=== PATIENT | female | born 1970 | race Caucasian/White ===

== ENCOUNTER 2016-03-29 13:44 | Emergency (ER) | payer OTHER ==
[2016-03-29] MEDS ORDERED: Morphine INJ* 2 MG/ML 1 ML CARPUJECT IV ONE ×2 (14:29→14:56)
[2016-03-29] MEDS ORDERED: Ondansetron INJ* 2 MG/ML VIAL IV ONE ×2 (14:30→14:56)
--- NOTE | 2016-03-29 14:35 | UC ---
Headache HPI - HPI Summary HPI Summary: 46 yo female with the gradual onset of KUMAR yesterday about 6 pm. It progressively got worse. It is holocrainial and pounding. It has been associated with photophobia/nausea and vomiting x 4. She has never had a headache last this long. She states she has had headaches 1-2 x week for years. Headaches can be moderate to severe and mahendra after she gets some sleep. Remote hx of sz disorder (has been sz free >15 yrs. No CP/SOB NO URI symptoms. No f/c. no head trauma. - History Of Current Complaint Chief Complaint: UCHeadache Stated Complaint: MIGRAINE Time Seen by Provider: 03/29/16 14:05 Hx Obtained From: Patient, Family/Natural Gas Technician - Hx Last Menstrual Period: HYSTERECTOMY Onset/Duration: Gradual Onset, Lasting Hours - about 20 hours Onset Of Symptoms: Gradual, Still Present, Worse Since(Note Comment) - this AM Initially Headache Was: "Worst Headache Ever", Severe Pain Intensity: 10 Pain Scale Used: 0-10 Numeric Timing: Constant Character: Throbbing Location of Headache: Diffuse Aggravating Factor: Nothing Allevating Factors: Nothing Associated Signs And Symptoms: Positive: Nausea, Vomiting. Negative: Dizziness , Seizure, Sinus Pressure, Fever, Neck Pain, Neck Stiffness, Decreased LOC Related History: Similar Episode/DX As: - has never seen a MD for her headaches - Risk Factors SAH Risk Factors: Family History - cousin Meningitis Risk Factors: Negative SDH Risk Factors: Negative Temporal Arteritis Risk Factors: Negative - Allergies/Home Medications Allergies/Adverse Reactions: Allergies Allergy/AdvReac Type Severity Reaction Status Date / Time HAYFEVER Allergy Intermediate Congestion Uncoded 04/01/13 16:26 PMH/Surg Hx/FS Hx/Imm Hx Previously Healthy: Yes Endocrine History Of: Denies: Diabetes, Thyroid Disease Cardiovascular History Of: Reports: Hypertension - not on medication Denies: Cardiac Disorders Respiratory History Of: Denies: COPD, Asthma GI/ History Of: Denies: Ulcer Neurological History Of: Reports: Seizures - Surgical History Surgical History: Yes Surgery Procedure, Year, and Place: CHOLECYSTECTOMY. Hysterectomy - Family History Known Family History: Positive: Hypertension, Other - CVA - Social History Alcohol Use: Rare Substance Use Type: None Smoking Status (MU): Never Smoked Tobacco - Immunization History Most Recent Influenza Vaccination: never Most Recent Tetanus Shot: UTD Review of Systems Constitutional: Negative Skin: Negative Eyes: Photophobia ENT: Negative Respiratory: Negative Cardiovascular: Negative Gastrointestinal: Vomiting Genitourinary: Negative Motor: Negative Neurovascular: Negative Musculoskeletal: Negative Neurological: Headache Psychological: Negative All Other Systems Reviewed And Are Negative: Yes Physical Exam Triage Information Reviewed: Yes Appearance: Well-Nourished, Pain Distress Vital Signs: Initial Vital Signs Temp 97.6 F 03/29/16 14:07 Pulse 96 03/29/16 14:07 Resp 16 03/29/16 14:07 BP 240/120 03/29/16 14:07 Pulse Ox 100 03/29/16 14:07 Eyes: Positive: Conjunctiva Clear, Other: - PERRL/EOMI ENT: Positive: Hearing grossly normal. Negative: Nasal congestion, Nasal drainage, Trismus, Muffled/hoarse voice Dental: Negative: Abscess @ Neck: Positive: Supple, Nontender, No Lymphadenopathy, Other: - NO BRUIT Respiratory: Positive: Lungs clear, Normal breath sounds, No respiratory distress, No accessory muscle use Cardiovascular: Positive: RRR, No Murmur, Pulses Normal. Negative: Tachycardia , Bradycardia Musculoskeletal: Positive: ROM Intact, No Edema Neurological: Positive: Alert, Muscle Tone Normal, Other: - CN2-12 INTACT, STRENGHT 5/5, DTRs ++. GAIT NOT TESTED, GCS 15/15 Psychological Exam: Normal Skin Exam: Normal Re-Evaluation - Re-Evaluation First Eval Re-Evaluation Time: 15:01 Change: Improved - HEADACHE SOME WHAT BETTER/VOMITING AGAIN Second Eval Change: Improved - KUMAR better, still vomiting,still appears uncomfortable Headache Course/Dx - Course Course Of Treatment: d/w Dr. Melchor. To [facility] [place] ED via EMS - Differential Dx/Diagnosis Provider Diagnoses: headache of uncertain cause Discharge - Discharge Plan Condition: Fair Disposition: [facility] Referrals: Nilay Dobbs PA [Primary Care Provider] -
[2016-03-29] MEDS ORDERED: NS 0.9% 1000 ML* 1,000 ML BOLUS ONE (15:34)
--- NOTE | 2016-03-29 15:45 | RAD ---
INDICATION: Severe headache COMPARISON: None. TECHNIQUE: Contiguous axial sections of the brain were obtained from the skull base to the vertex without contrast. FINDINGS: The ventricles, cisterns and sulci are within normal limits. The roman-white matter differentiation is adequately maintained and there is no sulcal effacement. No significant focal abnormality or mass effect is present. There is no evidence for intracranial hemorrhage. No significant focal osseous abnormality is present. The visualized portion of the paranasal sinuses and mastoid air cells appear clear. IMPRESSION: Normal CT of the brain.
[2016-03-29 16:16] VITALS: BP 189/104
== END 2016-03-29 16:10 | disposition short-term general hospital (02) ==
LOC: UCEAST 13:44
DX: R51 Headache (principal); R11.2 Nausea with vomiting, unspecified
CPT/HCPCS: 70450; 96374; 96375; 96376; 99214; G0463; J2270; J2405

== ENCOUNTER 2016-03-29 16:48 | Emergency (ER) | payer OTHER ==
[2016-03-29] MEDS ORDERED: Metoprolol Tartrate IV* 1 MG/ML 5 ML VIAL IV ONE ×2 (17:37→19:05)
[2016-03-29] MEDS ORDERED: Metoclopramide IV* 5 MG/ML 2 ML VIAL IV SLOW PU ONE (17:37)
[2016-03-29 18:15] LABS: Hematocrit 48 % (35-47); Hemoglobin 15.6 g/dl (12.0-16.0); Mean Corpuscular HGB Conc 33 g/dl (31-36); Mean Corpuscular Hemoglobin 27 pg (27-31); Mean Corpuscular Volume 83 fL (80-97); Red Cell Distribution Width 14 % (10.5-15); White Blood Count 17.4 10^3/ul (3.5-10.8)
[2016-03-29 18:18] LABS: Comments Flag Yes
[2016-03-29 18:34] LABS: Troponin I 0.01 ng/mL (<0.04)
[2016-03-29] MEDS ORDERED: Metoprolol Tartrate TAB* 25 MG PO ONE (19:05)
[2016-03-29 19:18] LABS: Albumin 4.6 g/dL (3.2-5.2); BUN/Creatinine Ratio 16.2 (8-20); Calcium 9.8 mg/dL (8.6-10.3); EGFR African American 109.6 (>60); EGFR Non-African American 85.3 (>60); Globulin 3.2 g/dL (2-4); Total Bilirubin 1.5 mg/dL (0.2-1.0); Total Protein 7.8 g/dL (6.4-8.9)
[2016-03-29 19:22] LABS: Potassium 3.5 mmol/L (3.5-5.0)
[2016-03-29 19:45] LABS: Urine Bacteria Absent (Absent); Urine Bilirubin Negative (Negative); Urine Glucose Negative (Negative); Urine Nitrite Negative (Negative)
[2016-03-29] MEDS ORDERED: Lisinopril TAB* 10 MG PO ONE (21:30)
[2016-03-29 23:52] VITALS: BP 134/60
--- NOTE | 2016-04-02 23:26 | ED ---
Eddie Lara Janilya, scribed for Liam Ferreira MD on 03/29/16 at 1821 . Headache - HPI Summary HPI Summary: A 46 y/o female came in to [facility] presenting w/ a gradual onset of constant migraine starting last night at 1800. Pt states she went to [facility] and was prescribed morphine. Pt reports HTN, nausea, vomiting, unusually frequent bowel movements. Pt denies CP, dizziness, lightheadedness, blurry vision. Pt woke up at 0100, 0300, 0400 to vomit. Pt states this is the worst KUMAR ever. In the last couple months, the frequency and the intensity of the KUMAR have progressively gotten worse. The last worst KUMAR pt had was 2 years ago. Pt was previously treated for HTN. PMHx seizures in 1990. No PMHx of blood clots. - History Of Current Complaint Chief Complaint: EDHypertension Stated Complaint: HEADACHE/NAUSEA/CONV CARE Time Seen by Provider: 03/29/16 17:18 Hx Obtained From: Patient Hx Last Menstrual Period: HYSTERECTOMY Onset/Duration: Gradual Onset, Started hours ago, Still Present Initially Headache Was: "Worst Headache Ever" Currently Pain Is: Moderate Timing: Constant, Hours Aggravating Factor: Nothing Allevating Factors: Nothing Associated Signs And Symptoms: Nausea, Vomiting - Risk Factors SAH Risk Factors: Hypertension Meningitis Risk Factors: Negative SDH Risk Factors: Negative Temporal Arteritis Risk Factors: Female - Allergies/Home Medications Allergies/Adverse Reactions: Allergies Allergy/AdvReac Type Severity Reaction Status Date / Time HAYFEVER Allergy Intermediate Congestion Uncoded 04/01/13 16:26 PMH/Surg Hx/FS Hx/Imm Hx Endocrine/Hematology History: Denies: Hx Diabetes, Hx Thyroid Disease Cardiovascular History: Reports: Hx Hypertension - not on medication Respiratory History: Denies: Hx Asthma, Hx Chronic Obstructive Pulmonary Disease (COPD) GI History: Denies: Hx Ulcer Neurological History: Reports: Hx Seizures - Surgical History Surgery Procedure, Year, and Place: CHOLECYSTECTOMY. Hysterectomy Infectious Disease History: No Infectious Disease History: Reports: Hx Shingles Denies: Hx Hepatitis, Hx Human Immunodeficiency Virus (HIV), History Other Infectious Disease, Traveled Outside the US in Last 30 Days - Family History Known Family History: Positive: Hypertension, Other - CVA - father, aneurysm - cousin, [place] - Social History Lives: With Family Alcohol Use: Rare Substance Use Type: Reports: None Smoking Status (MU): Never Smoked Tobacco Review of Systems Negative: Fever, Chills Negative: Erythema ENT: Negative - pt denies blurry vision Negative: Sore Throat Cardiovascular: Other - HTN Negative: Chest Pain Negative: Shortness Of Breath, Cough Positive: Vomiting, Nausea, Other - unusually frequent bowel movements. Negative: Abdominal Pain Negative: dysuria, hematuria Negative: Myalgia, Edema Negative: Rash Neurological: Negative - pt denies dizziness and lightheadedness All Other Systems Reviewed And Are Negative: Yes Physical Exam - Summary Physical Exam Summary: Constitutional: Well-developed, Well-nourished, Alert. (-) Distressed Skin: Warm, Dry HENT: Eyes: Conjunctiva normal Neck: Musculoskeletal ROM normal neck. (-) JVD, (-) Stridor, (-) Tracheal deviation Cardio: Rhythm regular, rate normal, Heart sounds normal; Intact distal pulses ; The pedal pulses are 2+ and symmetric. Radial pulses are 2+ and symmetric. (- ) Murmur Pulmonary/Chest wall: Effort normal. (-) Respiratory distress, (-) Wheezes, (-) Rales Abd: Soft. (-) Tenderness, (-) Distension, (-) Guarding, (-) Rebound Musculoskeletal: (-) Edema Lymph: (-) Cervical adenopathy Neuro: Alert, Oriented x3, Strength normal, Cranial nerves II-XII are grossly intact. (-) Dysmetria, (-) Nystagmus, (-) Ataxia by finger to nose testing, (-) Sensory deficit. Psych: Mood and affect Normal Triage Information Reviewed: Yes Vital Signs On Initial Exam: Initial Vitals Temp Pulse Resp BP Pulse Ox 97.0 F 90 18 201/118 99 03/29/16 16:50 03/29/16 16:50 03/29/16 16:50 03/29/16 16:50 03/29/16 16:50 Vital Signs Reviewed: Yes Diagnostics - Vital Signs Vital Signs Temp Pulse Resp BP Pulse Ox 03/29/16 16:50 97.0 F 90 18 201/118 99 - Laboratory Result Diagrams: 03/29/16 18:04 03/29/16 18:04 Lab Statement: Any lab studies that have been ordered have been reviewed, and results considered in the medical decision making process. - EKG 2057 Cardiac Rate: NL EKG Rhythm: Sinus Rhythm EKG Interpretation: No STEMI, T wave infiltration V1, V3-V6, 72 bpm. No comparison from past. 2246 Cardiac Rate: NL EKG Rhythm: Sinus Rhythm - T wave infiltration V3 resolved, V4-V6 unchanged, 68 bpm. Re-Evaluation - Re-Evaluation First Eval Re-Evaluation Time: 21:15 Change: Improved Headache Course/Dx - Course Course Of Treatment: Pt's bp was normalized while here. There is no KUMAR anymore. Prescribed 10 day supply of Metoprolol as well as Zofran and Reglan. - Diagnoses Provider Diagnoses: symptomatic hypertension, Gastroenteritis, EKG abnormalities - Physician Notifications Discussed Care Of Patient With: Dr. Holder (final cleaner) at 2123: discussed the EKG; there are no previous EKG for comparison. Recommended to repeat troponin levels and EKG. Discharge - Discharge Plan Condition: Stable Disposition: HOME Prescriptions: Metoclopramide TAB* [Reglan TAB*] 10 mg PO Q8H PRN #10 tab PRN Reason: Nausea/Vomiting Metoprolol Tartrate TAB* [Lopressor TAB*] 12.5 mg PO BID #20 tab Ondansetron ODT TAB* [Zofran Odt TAB*] 4 mg PO Q8H PRN #10 tab.odt PRN Reason: Nausea/Vomiting Patient Education Materials: Gastroenteritis (ED), Hypertension (ED), Electrocardiogram (GEN) Forms: *Work Release Referrals: Nilay Dobbs PA [Primary Care Provider] - Adolfo Holder DO [Medical Doctor] - Additional Instructions: Follow up with Dr. Holder (final cleaner) in 2-3 days. Follow up with your primary care provider in 48 hours. Return to the emergency department for changing or worsening symptoms. The documentation as recorded by the Eddie ray Janilya accurately reflects the service I personally performed and the decisions made by , Liam Ferreira MD.
== END 2016-03-29 23:51 | disposition home or self-care (01) ==
LOC: ED 16:48
DX: I10 Essential (primary) hypertension (principal); K52.9 Noninfective gastroenteritis and colitis, unspecified; R94.31 Abnormal electrocardiogram [ECG] [EKG]
CPT/HCPCS: 36415; 80053; 81003; 81015; 84484; 85027; 93005; 99282; A9270-GY; J2765; J3490

== ENCOUNTER 2016-04-15 02:05 | Emergency (ER) | payer OTHER ==
[2016-04-15 04:00] LABS: Hematocrit 49 % (35-47); Hemoglobin 16.3 g/dl (12.0-16.0); Mean Corpuscular HGB Conc 33 g/dl (31-36); Mean Corpuscular Hemoglobin 28 pg (27-31); Mean Corpuscular Volume 84 fL (80-97); Mean Platelet Volume 7 um3 (7.4-10.4); Red Blood Count 5.82 10^6/ul (4.0-5.4); Red Cell Distribution Width 14 % (10.5-15); White Blood Count 12.9 10^3/ul (3.5-10.8)
[2016-04-15 04:09] LABS: BUN/Creatinine Ratio 27.2 (8-20); Calcium 10.1 mg/dL (8.6-10.3); EGFR African American 66.6 (>60); EGFR Non-African American 51.8 (>60); Potassium 3.8 mmol/L (3.5-5.0)
--- NOTE | 2016-04-15 04:13 | ED ---
Syncope/Near Syncope - HPI Summary HPI Summary: Patient presents for evaluation of near syncope at home. She was started on chlorthalidone and increased lisinopril on Sunday by her Livestock Sales Representative. Tonight when getting up from bed at 0100, felt lightheaded when getting up for a drink of water. Fell down on her buttocks and felt confused for a minute. found her sitting on her buttocks. This recurred when he picked her up. Denies seizure like activity, head injury. Feels as if she is drinking and eating adequately. - History Of Current Complaint Chief Complaint: EDSyncope Time Seen by Provider: 04/15/16 02:13 Hx Obtained From: Patient, Family/Manual Training Teacher Onset/Duration: Gradual Onset Timing: Intermittent Episode Lasting Associated Head Trauma: No Aggravating Factor(s): Position Change Alleviating Factor(s): Position Change, Rest - Allergies/Home Medications Allergies/Adverse Reactions: Allergies Allergy/AdvReac Type Severity Reaction Status Date / Time HAYFEVER Allergy Intermediate Congestion Uncoded 04/01/13 16:26 PMH/Surg Hx/FS Hx/Imm Hx Previously Healthy: Yes Endocrine/Hematology History: Denies: Hx Diabetes, Hx Thyroid Disease Cardiovascular History: Reports: Hx Hypertension - not on medication Respiratory History: Denies: Hx Asthma, Hx Chronic Obstructive Pulmonary Disease (COPD) GI History: Denies: Hx Ulcer Neurological History: Reports: Hx Seizures - Surgical History Surgery Procedure, Year, and Place: CHOLECYSTECTOMY. Hysterectomy Infectious Disease History: No Infectious Disease History: Reports: Hx Shingles Denies: Hx Hepatitis, Hx Human Immunodeficiency Virus (HIV), History Other Infectious Disease, Traveled Outside the [place] in Last 30 Days - Family History Known Family History: Positive: None, Hypertension, Other - CVA - father, aneurysm - cousin, [place] - Social History Alcohol Use: Rare Substance Use Type: Reports: None Smoking Status (MU): Never Smoked Tobacco Review of Systems Constitutional: Negative Negative: Fever, Chills Cardiovascular: Negative Negative: Palpitations, Chest Pain Respiratory: Negative Negative: Shortness Of Breath, Cough Negative: Vomiting, Diarrhea All Other Systems Reviewed And Are Negative: Yes Physical Exam Triage Information Reviewed: Yes Vital Signs On Initial Exam: Initial Vitals Temp Pulse Resp BP Pulse Ox 96.6 F 72 18 134/76 100 04/15/16 02:12 04/15/16 02:12 04/15/16 02:12 04/15/16 02:12 04/15/16 02:12 Vital Signs Reviewed: Yes Appearance: Positive: Well-Appearing, No Pain Distress, Well-Nourished Skin: Positive: Warm, Skin Color Reflects Adequate Perfusion, Dry Eyes: Positive: Normal, EOMI, PAUL ENT: Positive: Normal ENT inspection, Hearing grossly normal, Pharynx normal Neck: Positive: Supple, Nontender, No Lymphadenopathy, Other: - No carotid bruits Respiratory/Lung Sounds: Positive: Clear to Auscultation, Breath Sounds Present Cardiovascular: Positive: Normal, RRR, Pulses are Symmetrical in both Upper and Lower Extremities Abdomen Description: Positive: Nontender, No Organomegaly, Soft Musculoskeletal: Positive: Normal, Strength/ROM Intact Neurological: Positive: Normal, Sensory/Motor Intact, Alert, Oriented to Person Place, Time, CN Intact II-III, Reflexes Intact, NV Bundle Intact Distally, Normal Gait. Negative: Cerebellar Dysfunction Diagnostics - Vital Signs Vital Signs Temp Pulse Resp BP Pulse Ox 04/15/16 02:12 96.6 F 72 18 134/76 100 - Laboratory Lab Results: Lab Results 04/15/16 Range/Units 03:46 WBC 12.9 H (3.5-10.8) 10^3/ul RBC 5.82 H (4.0-5.4) 10^6/ul Hgb 16.3 H (12.0-16.0) g/dl Hct 49 H (35-47) % MCV 84 (80-97) fL MCH 28 (27-31) pg MCHC 33 (31-36) g/dl RDW 14 (10.5-15) % Plt Count 282 (150-450) 10^3/ul MPV 7 L (7.4-10.4) um3 Result Diagrams: 04/15/16 03:46 04/15/16 03:46 Lab Statement: Any lab studies that have been ordered have been reviewed, and results considered in the medical decision making process. - EKG No standard instances Cardiac Rate: NL EKG Rhythm: Sinus Rhythm ST Segment: Normal Ectopy: None Course/Dx - Diagnoses Differential Diagnosis/HQI/PQRI: Positive: Dysrhythmia, Medication Reaction, Pulmonary Embolism, Vasovagal Episode, Other - Primary concern for medication induced near syncope. Had metoprolol 25 mg BID and lisinopril 10 mg daily started on 03/29, but then product analyst added chlorthalidone and doubled lisinopril on Sunday. Low wells, but not PERC qualifier since is beta blocked. EKG, D dimer, BMP. DC home with plan to hold chlorthalidone and cardiology FU. Provider Diagnoses: Near syncope Discharge - Discharge Plan Condition: Stable Disposition: HOME Patient Education Materials: Near Syncope (ED) Referrals: Nilay Dobbs PA [Primary Care Provider] - Additional Instructions: Patient needs to have light duty to have her blood pressure medication regimen re-evaluated by her Livestock Sales Representative. This is a safety risk to her and her coworkers if she continues to have medication side effects. She should be excused from work today 04/15/2016.
[2016-04-15 05:48] VITALS: BP 103/66
== END 2016-04-15 05:30 | disposition home or self-care (01) ==
LOC: ED 02:05
DX: R55 Syncope and collapse (principal)
CPT/HCPCS: 36415; 80048; 85027; 85379; 93005; 99283

== ENCOUNTER → 2017-04-16 09:06 | Emergency (ER) | payer OTHER ==
[2017-04-16 09:33] VITALS: BP 135/92
--- NOTE | 2017-04-16 10:07 | UC ---
Respiratory Complaint HPI - HPI Summary HPI Summary: 47 yo female with ,48 hr hx of f/c, runny nose, myalgias, cough and fatigue - History of Current Complaint Chief Complaint: UCGeneralIllness Stated Complaint: HEAD CONGESTION Time Seen by Provider: 04/16/17 10:01 Hx Obtained From: Patient Hx Last Menstrual Period: HYSTERECTOMY Onset/Duration: Sudden Onset, Lasting Hours, Lasting Days Timing: Constant Severity Initially: Moderate Severity Currently: Moderate Pain Intensity: 5 Pain Scale Used: 0-10 Numeric Character: Cough: Productive Aggravating Factors: Nothing Associated Signs And Symptoms: Positive: Fever, Chills, Nasal Congestion, Hoarseness, Sinus Discomfort - Allergies/Home Medications Allergies/Adverse Reactions: Allergies Allergy/AdvReac Type Severity Reaction Status Date / Time HAYFEVER Allergy Intermediate Congestion Uncoded 04/16/17 09:30 PMH/Surg Hx/FS Hx/Imm Hx Previously Healthy: Yes Respiratory History: Pneumonia - Surgical History Surgical History: Yes Surgery Procedure, Year, and Place: CHOLECYSTECTOMY. Hysterectomy - Family History Known Family History: Positive: Hypertension, Other - CVA - father, aneurysm - cousin, [place] - Social History Alcohol Use: Rare Substance Use Type: None Smoking Status (MU): Never Smoked Tobacco - Immunization History Most Recent Influenza Vaccination: never Most Recent Tetanus Shot: UTD Review of Systems Constitutional: Fever, Chills, Fatigue Skin: Negative Eyes: Negative ENT: Nasal Discharge, Sinus Congestion, Sinus Pain/Tenderness Respiratory: Cough Cardiovascular: Negative Gastrointestinal: Negative Genitourinary: Negative Motor: Negative Neurovascular: Negative Musculoskeletal: Arthralgia Neurological: Headache Psychological: Negative Is Patient Immunocompromised?: No All Other Systems Reviewed And Are Negative: Yes Physical Exam Triage Information Reviewed: Yes Appearance: Well-Appearing, No Pain Distress, Well-Nourished Vital Signs: Initial Vital Signs Temp 97.5 F 04/16/17 09:31 Pulse 63 04/16/17 09:31 Resp 20 04/16/17 09:31 BP 135/92 04/16/17 09:31 Pulse Ox 100 04/16/17 09:31 Vital Signs Reviewed: Yes Eyes: Positive: Conjunctiva Clear ENT: Positive: Nasal congestion, Nasal drainage, Uvula midline. Negative: Hearing grossly normal, Tonsillar swelling, Tonsillar exudate, Trismus, Muffled voice, Hoarse voice, Dental tenderness, Sinus tenderness Neck: Positive: Supple, Nontender, No Lymphadenopathy Respiratory: Positive: Lungs clear, Normal breath sounds, No respiratory distress Cardiovascular: Positive: RRR, No Murmur Musculoskeletal: Positive: ROM Intact, No Edema Neurological: Positive: Alert Psychological Exam: Normal Skin Exam: Normal UC Diagnostic Evaluation - Laboratory O2 Sat by Pulse Oximetry: 100 - normal/not hypoxic Respiratory Course/Dx - Differential Dx/Diagnosis Provider Diagnoses: influeza or influenza like illness Discharge - Discharge Plan Condition: Stable Disposition: HOME Prescriptions: Benzonatate CAP* [Tessalon CAP*] 100 - 200 mg PO TID PRN #28 cap PRN Reason: Cough Oseltamivir CAP* [Tamiflu CAP*] 75 mg PO BID #10 cap Patient Education Materials: Influenza (ED) Referrals: Nilay Dobbs PA [Primary Care Provider] - 7 Days (if not better ) Additional Instructions: rest fluids tylyenol or advil recheck for new or worsening symptoms flu or flu like illness
== END | disposition home or self-care (01) ==
LOC: UCEAST 09:06
DX: J11.1 Influenza due to unidentified influenza virus with other respiratory manifestations (principal); Z90.49 Acquired absence of other specified parts of digestive tract; Z90.710 Acquired absence of both cervix and uterus
CPT/HCPCS: 99212; G0463

== ENCOUNTER 2018-08-15 16:11 | Emergency (ER) | payer OTHER ==
--- NOTE | 2018-08-15 16:15 | UC ---
Complaint Female HPI - HPI Summary HPI Summary: 48 yo female presents with urinary frequency and bladder pressure for the last 2 days. Today she noticed some blood in her urine. Her last UTI was a few years ago and states that her symptoms feel the same as then. Denies fever, chills, abdominal pain, n/v, flank pain. - History Of Current Complaint Stated Complaint: UTI Time Seen by Provider: 08/15/18 16:14 Hx Obtained From: Patient Hx Last Menstrual Period: HYSTERECTOMY Onset/Duration: Sudden Onset Timing: Constant Severity Initially: Mild Severity Currently: Mild Pain Intensity: 3 Pain Scale Used: 0-10 Numeric - Allergies/Home Medications Allergies/Adverse Reactions: Allergies Allergy/AdvReac Type Severity Reaction Status Date / Time HAYFEVER Allergy Intermediate Congestion Uncoded 08/15/18 16:24 PMH/Surg Hx/FS Hx/Imm Hx Cardiovascular History: Hypertension - Surgical History Surgical History: Yes Surgery Procedure, Year, and Place: CHOLECYSTECTOMY. Hysterectomy - Family History Known Family History: Positive: Hypertension, Other - CVA - father, aneurysm - cousin, [place] - Social History Occupation: Employed Full-time Lives: With Family Alcohol Use: Rare Substance Use Type: None Smoking Status (MU): Never Smoked Tobacco - Immunization History Most Recent Influenza Vaccination: never Most Recent Tetanus Shot: UTD Review of Systems All Other Systems Reviewed And Are Negative: Yes Constitutional: Positive: Negative Skin: Positive: Negative Respiratory: Positive: Negative Cardiovascular: Positive: Negative Gastrointestinal: Positive: Negative Genitourinary: Positive: Hematuria, Frequency, Urgency Neurovascular: Positive: Negative Neurological: Positive: Negative Psychological: Positive: Negative Physical Exam - Summary Physical Exam Summary: GENERAL: NAD. WDWN. No pain distress. SKIN: No rashes, sores, lesions, or open wounds. NECK: Supple. Nontender. No lymphadenopathy. CHEST: CTAB. No r/r/w. No accessory muscle use. Breathing comfortably and in no distress. CV: RRR. Without m/r/g. Pulses intact. Cap refill <2seconds ABDOMEN: Soft. NTTP. No CVA tenderness. Bowel sounds present NEURO: Alert. PSYCH: Age appropriate behavior. Triage Information Reviewed: Yes Vital Signs: Vital Signs: Temp Pulse Resp BP Pulse Ox 98.7 F 71 17 152/76 100 08/15/18 16:19 08/15/18 16:19 08/15/18 16:19 08/15/18 16:19 08/15/18 16:19 Laboratory Tests 08/15/18 16:20 POC Urine Color Yellow POC Urine Clarity Cloudy POC Urine pH 5.5 POC Ur Specif [place] 1.025 POC Urine Protein 1+ A POC Ur Glucose (UA) Negative POC Urine Ketones Negative POC Urine Blood 3+ A POC Urine Nitrite Negative POC Urine Bilirubin Negative POC Urine Urobilinogen 1.0 POC U Leukocyte Esteras 2+ A Vital Signs Reviewed: Yes Complaint Female Dx - Course Course Of Treatment: UA positive. Rx for macrobid and will send her urine for culture - Differential Dx/Diagnosis Provider Diagnosis: UTI (urinary tract infection) Discharge - Sign-Out/Discharge Documenting (check all that apply): Patient Departure All imaging exams completed and their final reports reviewed: No Studies - Discharge Plan Condition: Stable Disposition: HOME Prescriptions: Nitrofurantoin Monohyd/M-Cryst [Macrobid 100 mg Capsule] 100 mg PO BID #10 cap Patient Education Materials: Urinary Tract Infection in Women (DC) Referrals: Nilay Dobbs PA [Primary Care Provider] - Additional Instructions: If you develop a fever, shortness of breath, chest pain, new or worsening symptoms - please call your PCP or go to the ED immediately. Your blood pressure was high at todays visit. Please see your primary provider within 4 weeks for recheck and re-evaluation. - Billing Disposition and Condition Condition: STABLE Disposition: Home
[2018-08-15 16:24] VITALS: BP 152/76
--- NOTE | 2018-08-17 08:35 | UC ---
- Progress Note Progress Note: preliim urine cx E. coli. on macrobid. sens pending. Course/Dx - Diagnoses Provider Diagnoses: UTI (urinary tract infection) Discharge - Sign-Out/Discharge Documenting (check all that apply): Post-Discharge Follow Up All imaging exams completed and their final reports reviewed: No Studies - Discharge Plan Condition: Stable Disposition: HOME Prescriptions: Nitrofurantoin Monohyd/M-Cryst [Macrobid 100 mg Capsule] 100 mg PO BID #10 cap Patient Education Materials: Urinary Tract Infection in Women (DC) Referrals: Nilay Dobbs PA [Primary Care Provider] - Additional Instructions: If you develop a fever, shortness of breath, chest pain, new or worsening symptoms - please call your PCP or go to the ED immediately. Your blood pressure was high at todays visit. Please see your primary provider within 4 weeks for recheck and re-evaluation. - Billing Disposition and Condition Condition: STABLE Disposition: Home
--- NOTE | 2018-08-17 16:06 | UC ---
- Progress Note Progress Note: Urine culture final results show indeterminate sens to macrobid. If pt is feeling better - continue course and no change If still having symptoms will rx cipro which is sens Course/Dx - Diagnoses Provider Diagnoses: UTI (urinary tract infection) Discharge - Sign-Out/Discharge Documenting (check all that apply): Post-Discharge Follow Up All imaging exams completed and their final reports reviewed: No Studies - Discharge Plan Condition: Stable Disposition: HOME Prescriptions: Nitrofurantoin Monohyd/M-Cryst [Macrobid 100 mg Capsule] 100 mg PO BID #10 cap Patient Education Materials: Urinary Tract Infection in Women (DC) Referrals: Nilay Dobbs PA [Primary Care Provider] - Additional Instructions: If you develop a fever, shortness of breath, chest pain, new or worsening symptoms - please call your PCP or go to the ED immediately. Your blood pressure was high at todays visit. Please see your primary provider within 4 weeks for recheck and re-evaluation. - Billing Disposition and Condition Condition: STABLE Disposition: Home
== END 2018-08-15 16:38 | disposition home or self-care (01) ==
LOC: UCEAST 16:11
DX: N39.0 Urinary tract infection, site not specified (principal)
CPT/HCPCS: 81003; 87077; 87086; 87186; 99212; G0463

== ENCOUNTER 2022-01-22 05:40 | Observation (INO) ==
[2022-01-22] MEDS ORDERED: Iodixanol (CONTRAST) 320 MG/ML 100 ML SDV IV ONE (06:18)
[2022-01-22 06:28] LABS: ABS Lymphocytes 1.4 10^3/ul (1.0-4.8); ABS Monocytes 0.4 10^3/ul (0-0.8); ABS Neutrophils 4.1 10^3/ul (1.5-7.7); Eosinophil % 0.8 %; Hematocrit 40 % (35-47); Hemoglobin 13.4 g/dL (12.0-16.0); Lymphocyte % 22.8 %; Mean Corpuscular HGB Conc 34 g/dL (31-36); Mean Corpuscular Hemoglobin 29 pg (27-31); Mean Corpuscular Volume 85 fL (80-97); Mean Platelet Volume 6.2 fL (7.4-10.4); Platelet Count 209 10^3/uL (150-450); Red Blood Count 4.66 10^6 /uL (3.70-4.87); Red Cell Distribution Width 13 % (10-15)
[2022-01-22 06:44] LABS: Activated Partial Thrombo Time 32.3 seconds (26.0-38.0); INR 0.93 (0.89-1.11)
[2022-01-22 07:00] LABS: Albumin 3.9 g/dL (3.2-5.2); Albumin/Globulin Ratio 1.9 (1-3); Calcium 8.6 mg/dL (8.6-10.3); Globulin 2.1 g/dL (2-4); HDL Cholesterol 40.8 mg/dL; Potassium 4.1 mmol/L (3.5-5.0); Total Bilirubin 0.9 mg/dL (0.2-1.0); eGFR CKD-EPI 81.1 (>60)
[2022-01-22 07:02] LABS: Urine Appearance Clear; Urine Bilirubin Negative (Negative); Urine Blood Negative (Negative); Urine Color Straw; Urine Glucose Negative (Negative); Urine Ketones Negative (Negative); Urine Nitrite Negative (Negative); Urine Protein Negative (Negative); Urine Specific Gravity 1.024 (1.002-1.030); Urine Urobilinogen Negative (Negative)
[2022-01-22] MEDS: Enoxaparin 40 MG/0.4 ML SYR SUBCUT SCH (12:07)
[2022-01-22] MEDS ORDERED: Ondansetron 4 mg VIAL 2 MG/ML 2 ml VIAL IV ONE (19:46)
[2022-01-23] MEDS: Enoxaparin 40 MG/0.4 ML SYR SUBCUT SCH (10:09)
[2022-01-23 20:33] VITALS: BP 145/82
[2022-01-25 14:21] LABS: Free Protein S Antigen 121 % (65 - 160)
[2022-01-25 14:25] LABS: Coagulation Factor V Assay 129 % (70 - 165)
[2022-01-25 16:19] LABS: Phospholipid Ab IgG < 9.4 GPL; Phospholipid Ab IgM, S < 9.4 MPL
[2022-01-30 12:10] LABS: Protein C Antigen, Plasma 113 % (72-160)
== END 2022-01-23 18:15 | disposition home or self-care (01) ==
LOC: EDHOLD 05:40 → ED 05:40 → MEDTELE 12:41
PROVIDERS: ADMIT Internal Medicine; ATTEND Internal Medicine